=== PATIENT | male | born 1965 | race African-American/Black ===

== ENCOUNTER 2017-04-08 23:52 | Inpatient (IN) | payer SELFPAY ==
[~2017-04-08] VITALS: Ht 175.3 cm; Wt 76.2 kg
[~2017-04-08 23:52] MED LIST: METF500T4 PO; NIFE30TA43 PO
[2017-04-09] VITALS (7 sets, daily range): BP systolic 134–172; BP diastolic 72–90
[2017-04-09] MEDS ORDERED: SODIUM CHLORIDE 0.9% 1,000 ML IV ONE (00:45)
[2017-04-09 00:58] LABS: BASOPHILS % 0.8 % (0.0-2.0); HEMATOCRIT. 41.4 % (42.0-52.0); HEMOGLOBIN. 14.3 g/dL (14.0-18.0); LYMPHOCYTES % 38.1 % (20.0-50.0); MEAN CORPUSCULAR HEMOGLOBIN 31.2 pg (28.0-32.0); MEAN CORPUSCULAR VOLUME 90.3 fL (80.0-94.0); MEAN PLATELET VOLUME 7.8 fl (7.4-10.4); MONOCYTES % 6.5 % (2.0-8.0); NEUTROPHILS % 53.6 % (40.0-76.0); PLATELET 198 x1000/uL (130-400); RED BLOOD CELL COUNT 4.59 mill/uL (4.7-6.1)
[2017-04-09 01:15] LABS: CARBON DIOXIDE 26 mEq/L (21-32); CHLORIDE 104 mEq/L (98-107); TROPONIN I < 0.02 ng/mL (0.00-0.04)
[2017-04-09] MEDS ORDERED: ASPIRIN 325MG TABLET PO ONE (01:30)
[2017-04-09] MEDS ORDERED: SODIUM CHLORIDE 0.9% 1,000 ML IV SCH (02:18)
[2017-04-09] MEDS ORDERED: ACETAMINOPHEN 325MG TABLET PO PRN (06:30)
[2017-04-09] MEDS ORDERED: MAGNESIUM/ALUMINUM HYDROXIDE/SIMETHICONE 30ML UDC PO PRN (06:30)
[2017-04-09] MEDS ORDERED: DOCUSATE SODIUM 100MG CAPSULE PO PRN (06:30)
[2017-04-09] MEDS ORDERED: ONDANSETRON HCL 4MG/2ML VIAL IV PRN (06:30)
[2017-04-09] MEDS ORDERED: IPRATROPIUM/ALBUTEROL 0.5-3(2.5)MG/3ML NEB INH PRN (06:30)
[2017-04-09] MEDS ORDERED: HYDROMORPHONE HCL/PF 2MG/ML CPJ IV PRN (06:30)
[2017-04-09] MEDS ORDERED: NA PHOS,M-B/NA PHOS,DI-BA ENEMA 118ML PR PRN (06:30)
[2017-04-09] MEDS ORDERED: DIPHENHYDRAMINE 50MG/ML VIAL IV PRN (06:30)
[2017-04-09] MEDS ORDERED: GUAIFENESIN 200MG/10ML SUGAR FREE UDC PO PRN (06:30)
[2017-04-09] MEDS ORDERED: LORAZEPAM 2MG/ML CPJ IV PRN (06:30)
[2017-04-09] MEDS ORDERED: DEXTROSE 50% WATER 50ML SYRINGE IV PRN (07:45)
[2017-04-09] MEDS: CLONIDINE 0.1MG TABLET PO PRN (07:59)
[2017-04-09] MEDS: ENOXAPARIN 40MG/0.4ML SYR SUBCUT SCH (08:00)
[2017-04-09] MEDS: ASPIRIN 81MG EC TABLET PO SCH (08:00)
[2017-04-09 09:44] LABS: CARBON DIOXIDE 27 mEq/L (21-32); CHLORIDE 108 mEq/L (98-107)
[2017-04-09] MEDS: BLOOD SUGAR DIAGNOSTIC STRIP TEST SCH ×3 (12:27→21:45)
[2017-04-09] MEDS: INSULIN LISPRO 100 UNITS/ML SUBCUT SCH ×3 (12:36→21:54)
[2017-04-09 13:26] LABS: CREATINE KINASE 149 IU/L (39-308); CREATINE KINASE MB FRACTION 1.5 ng/mL (0.5-3.6); T4 FREE 0.61 ng/dL (0.76-1.46); TROPONIN I < 0.02 ng/mL (0.00-0.04)
[2017-04-09] MEDS: HYDROCODONE/APAP 7.5/325MG 1 TAB TABLET PO PRN (21:50)
[2017-04-10] VITALS: BP 138/79
[2017-04-10 00:11] LABS: CREATINE KINASE 128 IU/L (39-308); CREATINE KINASE MB FRACTION 1.4 ng/mL (0.5-3.6); TROPONIN I < 0.02 ng/mL (0.00-0.04)
[2017-04-10 04:00] VITALS: BP 152/92
[2017-04-10] MEDS: BLOOD SUGAR DIAGNOSTIC STRIP TEST SCH ×4 (06:31→20:58)
[2017-04-10] MEDS: INSULIN LISPRO 100 UNITS/ML SUBCUT SCH ×4 (06:40→21:16)
[2017-04-10 07:05] LABS: *AMPHETAMINES SCREEN URINE NEGATIVE (NEGATIVE); *BARBITURATES SCREEN URINE NEGATIVE (NEGATIVE); *BENZODIAZEPINES SCREEN URINE NEGATIVE (NEGATIVE); *COCAINE SCREEN URINE PRESUMTIVE POSITIVE (NEGATIVE); CANNABINOID URINE SCREEN NEGATIVE (NEGATIVE); METHADONE URINE SCREEN NEGATIVE (NEGATIVE); OPIATES URINE SCREEN PRESUMTIVE POSITIVE (NEGATIVE); PHENCYCLIDINE URINE SCREEN NEGATIVE (NEGATIVE)
[2017-04-10 07:09] LABS: BASOPHILS % 0.4 % (0.0-2.0); EOSINOPHILS % 0.7 % (0.0-5.0); HEMATOCRIT. 37.6 % (42.0-52.0); HEMOGLOBIN. 12.9 g/dL (14.0-18.0); MEAN CORPUSCULAR HEMOGLOBIN 31.3 pg (28.0-32.0); MEAN CORPUSCULAR VOLUME 91.2 fL (80.0-94.0); MEAN PLATELET VOLUME 8.7 fl (7.4-10.4); MONOCYTES % 5.8 % (2.0-8.0); NEUTROPHILS % 57.1 % (40.0-76.0); PLATELET 172 x1000/uL (130-400); RED BLOOD CELL COUNT 4.12 mill/uL (4.7-6.1); RED CELL DISTRIBUTION WIDTH 13.2 % (11.6-14.6)
[2017-04-10 07:26] LABS: CARBON DIOXIDE 25 mEq/L (21-32); CHLORIDE 107 mEq/L (98-107); HDL CHOLESTEROL 49 mg/dL (40-59); LDL CHOLESTEROL 69 mg/dL (5-100)
[2017-04-10 08:00] VITALS: BP 161/91
[2017-04-10] MEDS: CLOPIDOGREL 75MG TABLET PO SCH (08:50)
[2017-04-10] MEDS: ASPIRIN 81MG EC TABLET PO SCH (08:50)
[2017-04-10] MEDS: HYDROCODONE/APAP 7.5/325MG 1 TAB TABLET PO PRN (08:51)
[2017-04-10] MEDS: CLONIDINE 0.1MG TABLET PO PRN (08:51)
[2017-04-10] MEDS: ENOXAPARIN 40MG/0.4ML SYR SUBCUT SCH (08:51)
[2017-04-10 11:49] LABS: PARTIAL THROMBOPLASTIN TIME 26.1 sec (23.4-31.0)
[2017-04-10 12:00] VITALS: BP 150/80
[2017-04-10 16:00] VITALS: BP 146/80
[2017-04-10 20:00] VITALS: BP 152/71
[2017-04-10] MEDS ORDERED: ATORVASTATIN CALCIUM 10MG TABLET PO SCH (21:00)
[2017-04-11] VITALS: BP 150/75
[2017-04-11 04:00] VITALS: BP 149/89
[2017-04-11] MEDS: BLOOD SUGAR DIAGNOSTIC STRIP TEST SCH (06:27)
[2017-04-11] MEDS: HYDROCODONE/APAP 7.5/325MG 1 TAB TABLET PO PRN (06:28)
[2017-04-11] MEDS: INSULIN LISPRO 100 UNITS/ML SUBCUT SCH (06:31)
[2017-04-11 08:00] VITALS: BP 156/90
[2017-04-11] MEDS: CLOPIDOGREL 75MG TABLET PO SCH (08:51)
[2017-04-11] MEDS: ASPIRIN 81MG EC TABLET PO SCH (08:51)
[2017-04-11] MEDS: ENOXAPARIN 40MG/0.4ML SYR SUBCUT SCH (08:53)
[2017-04-11 11:01] VITALS: BP 152/60
[2017-04-11 12:00] VITALS: BP 152/60
== END 2017-04-11 12:00 | disposition home or self-care (01) | DRG 45 ==
LOC: ER 23:52 → 5WST 04-09 02:19 → EDBEDREQ 04-09 02:22 → EDBEDREQTM 04-09 02:22 → ENRESERV 04-09 05:24
PROVIDERS: ADMIT Internal Medicine; ATTEND Internal Medicine
DX: I63.9 Cerebral infarction, unspecified (principal); G93.40 Encephalopathy, unspecified; E11.65 Type 2 diabetes mellitus with hyperglycemia; G81.94 Hemiplegia, unspecified affecting left nondominant side; G90.8 Other disorders of autonomic nervous system; E11.40 Type 2 diabetes mellitus with diabetic neuropathy, unspecified; E78.5 Hyperlipidemia, unspecified; F10.10 Alcohol abuse, uncomplicated; F17.200 Nicotine dependence, unspecified, uncomplicated; G51.0 Bell's palsy; I10 Essential (primary) hypertension; Z79.84 Long term (current) use of oral hypoglycemic drugs
CPT/HCPCS: 36415; 70450; 70551; 71010; 80048; 80053; 80061; 80305; 82550; 82553; 82962; 83036; 83880; 84439; 84443; 84484; 85025; 85379; 85610; 85730; 93005; 93306; 93970; 96360; 96361; 99291; J1650; J1815; J7030

== ENCOUNTER 2021-09-04 14:51 | Emergency (ER) | payer MEDICAID ==
[~2021-09-04] VITALS: Ht 170.2 cm; Wt 60.0 kg
[~2021-09-04 14:51] MED LIST changes: +METF-414 PO; -METF500T4 PO
[2021-09-04] MEDS ORDERED: PIPERACILLIN/TAZ 3.375G PREMIX 50 ML IV NR (18:00)
[2021-09-04] MEDS ORDERED: VANCOMYCIN 1G PREMIX 200 ML IV SCH (18:00)
[2021-09-04] MEDS ORDERED: PIPERACILLIN/TAZOBACTAM 3.375GM/50ML PREMIX IV ONE (18:00)
[2021-09-04 18:02] LABS: BASOPHILS % 0.3 % (0.0-2.0); EOSINOPHILS % 1.3 % (0.0-5.0); HEMATOCRIT. 45.9 % (42.0-52.0); HEMOGLOBIN. 15.8 g/dL (14.0-18.0); LYMPHOCYTES % 11.6 % (20.0-50.0); MEAN CORPUSCULAR HEMOGLOBIN 31.5 pg (28.0-32.0); MEAN CORPUSCULAR VOLUME 91.5 fL (80.0-94.0); MEAN PLATELET VOLUME 7.7 fl (7.4-10.4); MONOCYTES % 7.3 % (2.0-8.0); NEUTROPHILS % 79.5 % (40.0-76.0); PLATELET 198 x1000/uL (130-400); RED BLOOD CELL COUNT 5.02 mill/uL (4.7-6.1); RED CELL DISTRIBUTION WIDTH 13.8 % (11.6-14.6)
[2021-09-04 18:09] LABS: CHLORIDE 112 mEq/L (98-107)
[2021-09-04 18:15] LABS: C REACTIVE PROTEIN QUANT 0.8 mg/L (0.0-3.0)
[2021-09-04] MEDS ORDERED: MEROPENEM 1,000 MG in SODIUM CHLORIDE 0.9% 100 ML IV SCH (18:30)
[2021-09-04] MEDS ORDERED: AMOX-424 MT (19:02)
[2021-09-04] MEDS ORDERED: SULF1TAB48 MT (19:02)
[2021-09-04 20:28] VITALS: BP 125/76
== END 2021-09-04 20:30 | disposition home or self-care (01) ==
LOC: ER 14:51
DX: E13.621 Other specified diabetes mellitus with foot ulcer (principal); I10 Essential (primary) hypertension; Z86.73 Personal history of transient ischemic attack (TIA), and cerebral infarction without residual deficits; Z88.0 Allergy status to penicillin; Z79.899 Other long term (current) drug therapy
CPT/HCPCS: 36415; 73630; 80053; 82962; 85025; 86140; 87040; 96374; 99284; J2185; J3370; J7050

== ENCOUNTER 2023-04-30 15:18 | Emergency (ER) | payer MEDICAID, OTHER ==
[~2023-04-30] VITALS: Ht 182.9 cm; Wt 87.0 kg
[~2023-04-30 15:18] MED LIST changes: +AMOX-424 MT; +SULF1TAB48 MT
[2023-04-30 15:38] VITALS: BP 108/72; PULSE 98; RESP 18; TEMP 97.8; O2SAT 98
[2023-04-30] MEDS ORDERED: AMLODIPINE (15:38)
[2023-04-30] MEDS ORDERED: SEROQUEL (15:38)
== END 2023-04-30 16:10 | disposition left against medical advice (07) ==
LOC: ER 15:18
DX: T50.901A Poisoning by unspecified drugs, medicaments and biological substances, accidental (unintentional), initial encounter (principal); E11.9 Type 2 diabetes mellitus without complications; I10 Essential (primary) hypertension; Z86.73 Personal history of transient ischemic attack (TIA), and cerebral infarction without residual deficits; Z88.0 Allergy status to penicillin; Y92.89 Other specified places as the place of occurrence of the external cause
CPT/HCPCS: 99283

== ENCOUNTER 2023-11-22 08:37 | Emergency (ER) | payer OTHER ==
[~2023-11-22] VITALS: Ht 172.7 cm; Wt 69.0 kg
[~2023-11-22 08:37] MED LIST changes: +AMLODIPINE; +SEROQUEL
[2023-11-22 08:38] VITALS: O2SAT 100
[2023-11-22] MEDS: ACETAMINOPHEN 325MG TABLET PO NR (09:44)
[2023-11-22 09:48] LABS: BASOPHILS % 0.5 % (0.0-2.0); EOSINOPHILS % 0.7 % (0.0-5.0); HEMATOCRIT. 43.6 % (42.0-52.0); LYMPHOCYTES % 21.7 % (20.0-50.0); MEAN CORPUSCULAR HEMOGLOBIN 31.5 pg (28.0-32.0); MEAN CORPUSCULAR HGB CONC 34.4 g/dL (31.0-37.0); MEAN CORPUSCULAR VOLUME 91.6 fL (80.0-94.0); MEAN PLATELET VOLUME 7.6 fl (7.4-10.4); MONOCYTES % 7.5 % (2.0-8.0); NEUTROPHILS % 69.6 % (40.0-76.0); PLATELET 256 x1000/uL (130-400); RED BLOOD CELL COUNT 4.76 mill/uL (4.7-6.1); RED CELL DISTRIBUTION WIDTH 13.9 % (11.6-14.6); WHITE BLOOD COUNT 10.4 x1000/uL (4.5-11.0)
[2023-11-22 10:19] LABS: PROTHROMBIN TIME 10.7 sec (9.6-11.0)
[2023-11-22 11:57] LABS: CARBON DIOXIDE 28 mEq/L (21-32); CHLORIDE 106 mEq/L (98-107); POTASSIUM 3.5 mEq/L (3.5-5.1); SODIUM 139 mEq/L (136-145)
[2023-11-22 11:58] LABS: CALCIUM 9.1 mg/dL (8.7-10.4)
[2023-11-22 12:03] LABS: CREATININE 0.6 mg/dL (0.6-1.3); GLUCOSE 132 mg/dL (70-105); UREA NITROGEN BLOOD 10 mg/dL (9-23)
[2023-11-22 12:04] LABS: TROPONIN I HIGH SENSITIVITY 28 ng/L (3.0-53)
[2023-11-22 14:00] VITALS: BP 118/82; PULSE 88; RESP 18; TEMP 98.4
== END 2023-11-22 15:00 | disposition short-term general hospital (02) ==
LOC: ER 09:00 → EDBEDREQ 13:27 → EDBEDREQTM 13:27 → CANBEDREQ 14:01 → ER 15:00
DX: R07.89 Other chest pain (principal); F17.200 Nicotine dependence, unspecified, uncomplicated; E11.9 Type 2 diabetes mellitus without complications; I10 Essential (primary) hypertension; Z88.0 Allergy status to penicillin; Z86.73 Personal history of transient ischemic attack (TIA), and cerebral infarction without residual deficits
CPT/HCPCS: 36415; 71045; 80048; 83605; 83880; 84484; 85025; 93005; 99285